=== PATIENT | male | born 1965 | race Caucasian/White ===

== ENCOUNTER → 2024-11-26 23:26 | Emergency (ER) | payer OTHER, SELFPAY ==
[2024-11-26 23:38] VITALS: BP 165/98
[2024-11-27 00:03] LABS: % Basophils 0.8 % (0-2); % Eosinophils 1.9 % (0-6); % Immature Granulocytes 0.5 % (0-0.5); % Lymphocytes 18.2 % (20.5-51.1); % Monocytes 7.5 % (1.7-9.3); % Neutrophils 71.1 % (42.2-75.2); Absolute Basophils 0.1 10^3/uL (0-0.2); Absolute Eosinophils 0.2 10^3/uL (0-0.7); Absolute Lymphocytes 1.6 10^3/uL (1.2-3.4); Absolute Monocytes 0.7 10^3/uL (0.1-0.6); Absolute Neutrophils 6.2 10^3/uL (1.4-6.5); Hematocrit 47.4 % (39.0-52.0); Hemoglobin 16.2 g/dL (13.0-18.0); Mean Corp Hgb Conc. 34.2 g/dL (33.0-37.0); Mean Corpuscular Hgb 31.3 pg (27.0-31.0); Mean Corpuscular Volume 91.5 fL (80.0-94.0); Mean Platelet Volume 11.5 fL (7.4-10.4); Nucleated Red Blood Cells % 0 % (-); Platelet Count 219 10^3/uL (130-400); Red Blood Cell Count 5.18 10^6/uL (4.70-6.10); Red Cell Dist. Width 13.2 % (11.5-14.5); White Blood Cell Count 8.8 10^3/uL (4.8-10.8)
[2024-11-27 00:22] LABS: ALT (SGPT) 23 U/L (0-50); AST (SGOT) 31 U/L (17-59); Albumin 4.3 g/dl (3.5-5.0); Alkaline Phosphatase 76 U/L (38-126); Blood Urea Nitrogen 17 mg/dl (9-20); Calcium 8.5 mg/dl (8.4-10.2); Carbon Dioxide 28 mmol/L (22-30); Chloride 105 mmol/L (98-107); Glucose 167 mg/dl (70-99); Potassium 3.6 mmol/L (3.5-5.1); Sodium 142 mmol/L (135-145); Total Bilirubin 0.8 mg/dl (0.2-1.3); Total Protein 6.9 g/dl (6.3-8.2); eGFR > 60.00
[2024-11-27 00:28] LABS: Troponin I < 0.012 ng/ml
[2024-11-27 02:14] VITALS: BP 140/87
[2024-11-27 02:17] VITALS: BMI 33.9
[2024-11-27] MEDS: MAALOX 50 PO (02:55)
[2024-11-27 03:00] VITALS: BP 154/88
--- NOTE | 2024-11-27 03:24 | ED.GENMED ---
History of Present Illness
General
Chief Complaint: Chest Pain
Source: patient and ambulance crew
Exam Limitations: none
Time Seen by Provider: 11/27/24 02:38
Nursing documentation reviewed up to this point in time: agreed with
History of Present Illness
History of Present Illness:
This is a 59-year-old gentleman who has no significant past medical history save for borderline hypertension, intermittent anxiety. He does admit to frequent 'indigestion' which is generally exacerbated when he drinks orange juice, improves when he
avoids dairy. His indigestion generally promptly resolves with Gaviscon which he takes perhaps once per week. Other than this he takes no medicines on a daily basis.
Tonight while dining at a [employer] restaurant he ate fish tacos and then was eating cheesecake when he developed his typical indigestion that did not resolve with drinking lemon water. He did pass a few soft bowel movements. Chest pain lower
substernal, nonradiating, no associated coughing or shortness of breath, no diaphoresis or palpitations. While driving home chest pain seem to worsen thus he pulled over and called 911. Prehospital EKG reportedly unremarkable. He was given 324 mg
chewable aspirin prehospital.
While in triage patient states he burped a few times and chest pain has since resolved.
He denies abdominal pain or back pain.
No recent travel. No leg pain or swelling.
He denies alcohol nor tobacco use.
Past History
Past History
ED Past Medical History: GERD, HTN and Psychiatric (Anxiety)
ED Past Surgical History: None
Social History
Tobacco: Non-smoker
Alcohol: None
Drug: None
Personal: Single
Living: with family
Employment: Not employed
Family History
Family History: CAD (Grandfather with history of MIs late in life.) and Other (Father with history of CVA)
Phy Exam
Physical Exam
Physical Exam:
GENERAL: 59-year-old gentleman appears somewhat older than stated age, bright and alert, pleasant, appears in no acute distress.
EYE: anicteric
NECK: Supple, nontender, no meningismus, no significant adenopathy.
ENT: oral mucosa is moist. No rhinorrhea.
CARDIAC: Regular rate and rhythm. no murmur.
LUNGS: Clear breath sounds bilaterally, no acute respiratory distress, no wheezes/rales/rhonchi
ABDOMEN: Soft, nondistended, minimal tenderness epigastric region with deep palpation only, no r/g, no cvat. normoactive BS.
NEUROLOGICAL: Alert and oriented x3, no focal neuro deficits.
SKIN: Warm and dry, normal color, skin intact. No rash.
MUSCULOSKELETAL: No C/C/E. peripheral pulses are full and equal b/l. No palpable tenderness.
PSYCH: Normal and appropriate interaction.
Scores
Heart Score for Chest Pain Patients
STEMI patient?: No
History: Slightly or Non-Suspicious
ECG: Normal
Age: >45 - <65 years
Risk Factors: 1 or 2 Risk Factors
Troponin: </= Normal Limit
Heart Score for Chest Pain Patients: 2
Heart Score Risk: 2.5% MACE over next 6 weeks
Course
Orders/Labs/Results
Orders:
Orders
11/26/24 23:29
Electrocardiogram (*1) Urgent
Reason for Study: Chest Pain
EKG- Treatment ONCE
11/26/24 23:52
Complete Blood Count/With Diff Urgent
Comprehensive Metabolic Panel Urgent
Troponin I Urgent
11/27/24 02:51
Electrocardiogram (*1) Urgent
Reason for Study: Chest Pain
EKG- Treatment ONCE
Mag Hydrox/Al Hydrox/Simeth [Maalox] 30 ml Phenobarb/Hyoscy/Atropine/Scop [] 10 ml Viscous Lidocaine 2% [Xylocaine Viscous Cup] 10 ml PO NOW
11/27/24 02:53
Mag Hydrox/Al Hydrox/Simeth [Maalox] 30 ml .ROUTE .STK-MED ONE
Phenobarb/Hyoscy/Atropine/Scop [] 10 ml .ROUTE .STK-MED ONE
Viscous Lidocaine 2% [Xylocaine Viscous Cup] 15 ml .ROUTE .STK-MED ONE
11/27/24 02:55
Troponin I Urgent
11/27/24 04:45
Pantoprazole [Protonix] 40 mg PO NOW STA
Abnormal Lab Results
11/26/24
23:52
MCH 31.3 H pg
(27.0-31.0)
MPV 11.5 H fL
(7.4-10.4)
Absolute Monos (auto) 0.7 H 10^3/uL
(0.1-0.6)
Lymphocytes % 18.2 L %
(20.5-51.1)
Glucose 167 H mg/dl
(70-99)
11/26/24 23:52
11/26/24 23:52
Vital Signs
Initial and Last Documented VS:
Initial Vital Signs
Temp Pulse Resp BP Pulse Ox
98.2 F 73 14 165/98 95
11/26/24 23:38 11/26/24 23:38 11/26/24 23:38 11/26/24 23:38 11/26/24 23:38
Last Documented Vital Signs
Temp Pulse Resp BP Pulse Ox
98.2 F 70 14 171/114 98
11/27/24 04:53 11/27/24 04:53 11/27/24 04:53 11/27/24 04:53 11/27/24 04:53
MDM/Problems Addressed
Differential Diagnosis Includes:
Concern for GERD, ACS, biliary colic, gastritis, other consideration is pancreatitis.
EKG is unremarkable.
Labs thus far unremarkable save for mildly elevated random glucose of 160. Troponin is negative.
Will plan to repeat troponin, EKG and will trial a GI cocktail.
Chronic conditions affecting care: HTN
*Pulse Oximetry
Patient hypoxic: no
*EKG
Interpreted by ED Provider?: Yes
Comparison EKG: no comparison EKG present
Rate: normal
Rhythm: sinus
Sharon: normal axis
Interval: normal interval
QRS Pattern: poor R-wave progression
Ischemia: no ischemia
*Client Services Analyst Interpretation
Rate: normal
Interpretation: normal
Rhythm: sinus
*Critical Care Note
Total Time (30-74mins, 75-104mins- exclusive of procedures): Not Applicable
Update Note
Update Note:
04:55
Repeat troponin remains negative.
Chest pain improved after GI cocktail.
He is noted to have mild to moderate hypertension and patient notes history of hypertension. No previous treatment for hypertension.
Will discharge to home with prescription for Protonix.
Will start metoprolol xl 25 mg for HTN
Recommend bland diet as well as low-sodium diet.
Prompt follow-up with PCP for recheck and patient will be referred to our chest pain hotline as well.
ED Attending Note
-
Portions of this chart may have been created with voice recognition software.� Occasional wrong word or��sound alike� substitutions may have occurred due to the inherent limitations of voice recognition software.
Discharge Plan
Departure
Patient Disposition: Home (Routine Discharge)
Date of Disposition: 11/27/24
Time of Disposition: 04:57
Patient with high blood pressure during this ER visit?: Yes
Condition: Good
Discharge Problem:
Acute nonspecific chest pain, Essential hypertension, Acute GERD
Instructions: Acid Reflux and GERD in Adults (DC), Chest Pain DCA Follow Up, BLOOD PRESSURE
Prescriptions:
New
pantoprazole [Protonix] 40 mg tablet,delayed release (DR/EC)
40 mg PO DAILY Qty: 30 0RF
metoprolol succinate [Toprol XL] 25 mg tablet extended release 24 hr
25 mg PO DAILY Qty: 30 0RF
Discontinued
epinephrine [EpiPen 2-Colby] 0.3 mg/0.3 mL auto-injector
0.3 mg IM ONCE PRN (Reason: anaphylaxis) Qty: 2 0RF
diphenhydramine HCl [Benadryl] 25 mg capsule
25 mg PO TID PRN (Reason: allergy symptoms) Qty: 14 0RF
Referrals:
Thea Loyola MD [Family Provider] - Call in 1-3 days for appt
Interventions
Interventions:
*Risk Screen - Suicide Last Done: 11/26/24 23:38
*General Assessment Last Done: 11/26/24 23:38
*Neglect/Abuse Screening Last Done: 11/26/24 23:38
ED- Cardiac Assessment Last Done: 11/27/24 02:17
Discharge Date and Time
Print Language: MALAWIAN
[2024-11-27 03:50] LABS: Troponin I < 0.012 ng/ml
[2024-11-27 04:00] VITALS: BP 169/103
[2024-11-27] MEDS: PROTONIX 40 MG PO (04:52)
[2024-11-27 04:53] VITALS: BP 171/114
== END | disposition home or self-care (01) ==
LOC: EMR 23:26
PROVIDERS: EMERGENCY PHYSICIAN Emergency Medicine; FAMILY PHYSICIAN Family Medicine
DX: R07.89 Other chest pain (principal); I10 Essential (primary) hypertension; K21.9 Gastro-esophageal reflux disease without esophagitis; Z82.3 Family history of stroke; Z82.49 Family history of ischemic heart disease and other diseases of the circulatory system
CPT/HCPCS: 99283; 80053; 84484; 85025; 93005